=== PATIENT | female | born 1980 | race Caucasian/White ===

== ENCOUNTER → 2017-06-22 | Outpatient (CLI) | payer MEDICAID | LOC: FIMAGING 13:40 | PROVIDERS: ATTEND Obstetrics & Gynecology | DX: O09.521 Supervision of elderly multigravida, first trimester (principal); O98.211 Gonorrhea complicating pregnancy, first trimester; O99.321 Drug use complicating pregnancy, first trimester; O09.211 Supervision of pregnancy with history of pre-term labor, first trimester; O34.219 Maternal care for unspecified type scar from previous cesarean delivery; F12.90 Cannabis use, unspecified, uncomplicated; Z3A.13 13 weeks gestation of pregnancy ==

== ENCOUNTER → 2017-08-06 | Outpatient (CLI) | payer MEDICAID | LOC: FIMAGING 12:01 | PROVIDERS: ATTEND Obstetrics & Gynecology | DX: O09.512 Supervision of elderly primigravida, second trimester (principal); O34.219 Maternal care for unspecified type scar from previous cesarean delivery; Z3A.19 19 weeks gestation of pregnancy ==

== ENCOUNTER → 2017-08-13 | Outpatient (CLI) | payer MEDICAID | LOC: FIMAGING 09:54 | PROVIDERS: ATTEND Obstetrics & Gynecology | DX: O09.512 Supervision of elderly primigravida, second trimester (principal); Z3A.20 20 weeks gestation of pregnancy; Z87.51 Personal history of pre-term labor; Z98.891 History of uterine scar from previous surgery ==

== ENCOUNTER → 2017-08-20 | Outpatient (CLI) | payer MEDICAID | LOC: FIMAGING 12:45 | PROVIDERS: ATTEND Obstetrics & Gynecology | DX: O26.872 Cervical shortening, second trimester (principal); O09.522 Supervision of elderly multigravida, second trimester; Z3A.21 21 weeks gestation of pregnancy; Z98.891 History of uterine scar from previous surgery ==

== ENCOUNTER → 2017-09-03 | Outpatient (CLI) | payer MEDICAID | LOC: FIMAGING 14:10 | PROVIDERS: ATTEND Obstetrics & Gynecology | DX: O09.522 Supervision of elderly multigravida, second trimester (principal); O26.872 Cervical shortening, second trimester; Z3A.23 23 weeks gestation of pregnancy; Z98.891 History of uterine scar from previous surgery; Z87.51 Personal history of pre-term labor ==